=== PATIENT | male | born 1985 | race American Indian/Alaskan Native ===

== ENCOUNTER 2020-11-16 13:26 | Emergency (ER) | payer SELFPAY ==
[2020-11-16 13:48] VITALS: BP 133/92
--- NOTE | 2020-11-16 14:22 | Emergency Department Report ---
ED Extremity Problem HPI - General Chief complaint: Skin/Abscess/Foreign Body Stated complaint: SPIDER BITE, VISION TROUBLE Time Seen by Provider: 11/16/20 14:09 Source: patient Mode of arrival: Ambulatory Limitations: No Limitations - History of Present Illness Initial comments: Patient is a 35-year-old male presents emergency room complaints of left elbow swelling that began a few days ago. He denies any significant pain. He states he did not know if he was bit by something but did not feel or see anything bite him and has no bite hoyt. he denies any fall or injury. pt denies any redness,increased warmth, drainage, fever, chills. No past medical history. No allergies medications. - Related Data Previous Rx's Medication Instructions Recorded Last Taken Type Naproxen [EC-Naprosyn] 500 mg PO BID PRN #14 tablet. 11/16/20 Unknown Rx Allergies Allergy/AdvReac Type Severity Reaction Status Date / Time No Known Allergies Allergy Unverified 11/16/20 13:45 ED Review of Systems ROS: Stated complaint: SPIDER BITE, VISION TROUBLE Other details as noted in HPI Comment: All other systems reviewed and negative ED Past Medical Hx - Past Medical History Additional medical history: ECZEMA - Surgical History Additional Surgical History: CYST - Medications Home Medications: Home Medications Medication Instructions Recorded Confirmed Last Taken Type Naproxen [EC-Naprosyn] 500 mg PO BID PRN #14 tablet. 11/16/20 Unknown Rx ED Physical Exam - General Limitations: No Limitations General appearance: alert, in no apparent distress - Head Head exam: Present: atraumatic, normocephalic - Eye Eye exam: Present: normal appearance - ENT ENT exam: Present: mucous membranes moist - Extremities Exam Extremities exam: Present: other (there is moderate edema to the left olecranon region, no erythema, no increased warmth, no drainage, no skin changes, no abrasions, FROM of the LUE, no bony ttp, no pain with ROM, neurovascularly intact) - Neurological Exam Neurological exam: Present: alert, oriented X3 - Psychiatric Psychiatric exam: Present: normal affect, normal mood - Skin Skin exam: Present: warm, dry, intact ED Course Vital Signs 11/16/20 13:46 Temperature 98.5 F Pulse Rate 72 Respiratory 20 Rate Blood Pressure 133/92 O2 Sat by Pulse 99 Oximetry ED Medical Decision Making - Medical Decision Making Patient is a 35-year-old male presents emergency room complaints of left elbow swelling that began a few days ago. He denies any significant pain. He states he did not know if he was bit by something but did not feel or see anything bite him and has no bite hoyt. he denies any fall or injury. pt denies any redness,increased warmth, drainage, fever, chills. No past medical history. No allergies medications. Vitals are stable. On exam:there is moderate edema to the left olecranon region, no erythema, no increased warmth, no drainage, no skin changes, no abrasions, FROM of the LUE, no bony ttp, no pain with ROM, neurovascularly intact. No signs of cellulitis, septic joint, septic bursitis. Examination appears most consistent with olecranon bursitis. Patient given prescription for medication and placed in Jose wrap. Advised patient Please take medication as prescribed as needed. Do not wear Jose bandage too tightly and do not wear at night while sleeping. May ice 15 minutes at a time, rest. Follow- up with orthopedic doctor. Return to emergency room for new or worsening symptoms. Critical care attestation.: If time is entered above; I have spent that time in minutes in the direct care of this critically ill patient, excluding procedure time. ED Disposition Clinical Impression: Olecranon bursitis Qualifiers: Laterality: left Qualified Code(s): M70.22 - Olecranon bursitis, left elbow Disposition: - TO HOME OR SELFCARE Is pt being admited?: No Does the pt Need Aspirin: No Condition: Stable Instructions: Elbow Bursitis, [id number] Additional Instructions: Please take medication as prescribed as needed. Do not wear Jose bandage too tightly and do not wear at night while sleeping. May ice 15 minutes at a time, rest. Follow-up with orthopedic doctor. Return to emergency room for new or worsening symptoms. Prescriptions: Naproxen [EC-Naprosyn] 500 mg PO BID PRN #14 tablet.dr MORENO Reason: pain Referrals: MINNIE HUBER MD [Staff Physician] - 3-5 Days [facility] [Provider Group] - 3-5 Days Forms: Work/School Release Form(ED) Time of Disposition: 14:21 Print Language: GREENLANDIC
== END 2020-11-16 15:02 | disposition home or self-care (01) ==
LOC: ED 13:26
DX: M70.22 Olecranon bursitis, left elbow (principal); Z79.899 Other long term (current) drug therapy
CPT/HCPCS: 99281; 99282